=== PATIENT | female | born 1965 | race African-American/Black ===

== ENCOUNTER 2016-12-03 16:49 | Emergency (ER) | payer MEDICARE, MEDICAID ==
[~2016-12-03] VITALS: Ht 165.1 cm; Wt 80.0 kg
[~2016-12-03 16:49] MED LIST: ALBU05 IH; AMLO2.5T45 PO; ASPI-1159 PO; CODE118S2 PO; FAMO20TA8 PO; FLUT1DIS IH; HYDR-519 PO; LISI-604 PO; TIOT18CA3 IH
[2016-12-03] MEDS ORDERED: IPRATROPIUM BROMIDE (0.02%) 0.5MG/2.5ML NEB HHN STA (17:04)
[2016-12-03] MEDS ORDERED: METHYLPREDNISOLONE SOD SUCC 125 MG/2 ML VIAL IV STA (17:04)
[2016-12-03] MEDS ORDERED: ALBUTEROL (0.083%) 2.5MG/3ML NEB ONE (17:14)
[2016-12-03] MEDS ORDERED: ALBUTEROL (0.5%) 2.5MG/0.5ML NEB HHN ONE (17:15)
[2016-12-03] MEDS ORDERED: ALBUTEROL (0.083%) 2.5MG/3ML NEB HHN SCH (17:30)
[2016-12-03 17:31] LABS: BASOPHILS % 0.6 % (0.0-2.0); EOSINOPHILS % 0.8 % (0.0-5.0); HEMATOCRIT. 39.1 % (36.0-48.0); HEMOGLOBIN. 13.3 g/dL (12.0-16.0); LYMPHOCYTES % 27.4 % (20.0-50.0); MEAN CORPUSCULAR HEMOGLOBIN 34.3 pg (28.0-32.0); MEAN PLATELET VOLUME 7.6 fl (7.4-10.4); MONOCYTES % 9.1 % (2.0-8.0); NEUTROPHILS % 62.1 % (40.0-76.0); PLATELET 311 x1000/uL (130-400); RED BLOOD CELL COUNT 3.88 mill/uL (4.2-5.4); RED CELL DISTRIBUTION WIDTH 14.5 % (11.6-14.6)
[2016-12-03 17:38] LABS: CARBON DIOXIDE 22 mEq/L (21-32); CHLORIDE 107 mEq/L (98-107)
[2016-12-03 17:45] LABS: TROPONIN I < 0.02 ng/mL (0.00-0.04)
[2016-12-03] MEDS ORDERED: SODIUM CHLORIDE 0.9% 1,000 ML IV ONE (18:00)
[2016-12-03 18:32] VITALS: BP 105/63
== END 2016-12-03 21:10 | disposition home or self-care (01) ==
LOC: ER 17:38
DX: J44.1 Chronic obstructive pulmonary disease with (acute) exacerbation (principal); J45.909 Unspecified asthma, uncomplicated; Z79.82 Long term (current) use of aspirin; Z79.899 Other long term (current) drug therapy
CPT/HCPCS: 36415; 71010; 71035; 80053; 83880; 84484; 85025; 85610; 93005; 94660; 96361; 96374; 99285; J2930; J7030; J7611

== ENCOUNTER 2019-01-04 20:17 | Emergency (ER) | payer OTHER, MEDICAID ==
[~2019-01-04] VITALS: Ht 160 cm; Wt 77.0 kg
[~2019-01-04 20:17] MED LIST changes: -ASPI-1159 PO; +ASPI-1393 PO
[2019-01-04] MEDS ORDERED: KETOROLAC 60MG/2ML VIAL IM ONE (21:15)
[2019-01-04] MEDS ORDERED: HYDROCODONE/ACETAMINOPHEN 5/325MG TABLET PO ONE (21:15)
[2019-01-04 22:49] VITALS: BP 123/85
== END 2019-01-04 22:53 | disposition home or self-care (01) ==
LOC: ER 20:17
DX: M54.5 Low back pain (principal); M54.2 Cervicalgia; S00.81XA Abrasion of other part of head, initial encounter; V03.00XA Pedestrian on foot injured in collision with car, pick-up truck or van in nontraffic accident, initial encounter; Y93.01 Activity, walking, marching and hiking; Y92.481 Parking lot as the place of occurrence of the external cause
CPT/HCPCS: 72100; 96372; 99283; J1885

== ENCOUNTER 2019-06-22 21:59 | Emergency (ER) | payer OTHER, MEDICAID ==
[~2019-06-22] VITALS: Ht 162.6 cm; Wt 75.0 kg
[~2019-06-22 21:59] MED LIST changes: -ASPI-1393 PO; +ASPI-1497 PO
[2019-06-23] MEDS ORDERED: MAGNESIUM/ALUMINUM HYDROXIDE/SIMETHICONE 30ML UDC PO STA (06:13)
[2019-06-23] MEDS ORDERED: ONDANSETRON HCL 4MG/2ML INJ IV STA (06:13)
[2019-06-23] MEDS ORDERED: FAMOTIDINE 20MG/2ML VIAL IV STA (06:13)
[2019-06-23] MEDS ORDERED: SODIUM CHLORIDE 0.9% 1,000 ML IV ONE (06:13)
[2019-06-23] MEDS ORDERED: ACETAMINOPHEN 325MG TABLET PO STA (06:13)
[2019-06-23] MEDS ORDERED: MAGNESIUM 2 G PREMIX 50 ML IV ONE (06:45)
[2019-06-23 08:59] LABS: BASOPHILS % 0.4 % (0.0-2.0); EOSINOPHILS % 0.2 % (0.0-5.0); HEMATOCRIT. 45.6 % (36.0-48.0); HEMOGLOBIN. 15.1 g/dL (12.0-16.0); LYMPHOCYTES % 11.8 % (20.0-50.0); MEAN CORPUSCULAR HEMOGLOBIN 34.5 pg (28.0-32.0); MEAN CORPUSCULAR VOLUME 103.8 fL (81.0-99.0); MEAN PLATELET VOLUME 9.6 fl (7.4-10.4); MONOCYTES % 10.6 % (2.0-8.0); PLATELET 143 x1000/uL (130-400); RED BLOOD CELL COUNT 4.39 mill/uL (4.2-5.4); RED CELL DISTRIBUTION WIDTH 14.4 % (11.6-14.6)
[2019-06-23 09:18] LABS: CHLORIDE 100 mEq/L (98-107)
[2019-06-23 11:00] VITALS: BP 126/78
[2019-06-23 11:03] LABS: CLARITY URINE CLOUDY (CLEAR); COLOR URINE YELLOW (YELLOW); KETONES URINE 1+ (NEGATIVE); LEUKOCYTE ESTERASE URINE 1+ (NEGATIVE); NITRITE URINE NEGATIVE (NEGATIVE); OCCULT BLOOD URINE NEGATIVE (NEGATIVE); PH URINE 5.5 (4.5-8.0); PROTEIN URINE 1+ (NEGATIVE); SPECIFIC GRAVITY URINE 1.071 (1.005-1.030)
[2019-06-23] MEDS ORDERED: IPRATROPIUM/ALBUTEROL 0.5-3(2.5)MG/3ML NEB HHN ONE (11:30)
[2019-06-23] MEDS ORDERED: IOHEXOL-300 100 ML BOTTLE ONE (11:41)
== END 2019-06-23 11:50 | disposition home or self-care (01) ==
LOC: ER 21:59
DX: K52.9 Noninfective gastroenteritis and colitis, unspecified (principal); R74.0 Nonspecific elevation of levels of transaminase and lactic acid dehydrogenase [LDH]; I10 Essential (primary) hypertension; J45.909 Unspecified asthma, uncomplicated
CPT/HCPCS: 36415; 71045; 74177; 80053; 81003; 83690; 84484; 85025; 93005; 96365; 96375; 99284; J2405; J3475; J3490; J7030; Q9967

== ENCOUNTER 2019-12-04 07:20 | Emergency (ER) | payer MEDICARE, MEDICAID ==
[~2019-12-04] VITALS: Ht 170.2 cm; Wt 81.0 kg
[2019-12-04] MEDS ORDERED: SODIUM CHLORIDE 0.9% 1,000 ML IV ONE (08:22)
[2019-12-04] MEDS ORDERED: MAGNESIUM/ALUMINUM HYDROXIDE/SIMETHICONE 30ML UDC PO STA (08:22)
[2019-12-04] MEDS ORDERED: KETOROLAC 30MG/ML VIAL IV STA (08:22)
[2019-12-04] MEDS ORDERED: ONDANSETRON HCL 4MG/2ML INJ IV STA (08:22)
[2019-12-04 09:32] LABS: BASOPHILS % 0.5 % (0.0-2.0); EOSINOPHILS % 0.1 % (0.0-5.0); HEMATOCRIT. 50.9 % (36.0-48.0); HEMOGLOBIN. 17.6 g/dL (12.0-16.0); MEAN CORPUSCULAR HEMOGLOBIN 36.6 pg (28.0-32.0); MEAN CORPUSCULAR VOLUME 105.8 fL (81.0-99.0); MEAN PLATELET VOLUME 9.5 fl (7.4-10.4); MONOCYTES % 11.4 % (2.0-8.0); PLATELET 184 x1000/uL (130-400); RED BLOOD CELL COUNT 4.81 mill/uL (4.2-5.4); RED CELL DISTRIBUTION WIDTH 13.3 % (11.6-14.6)
[2019-12-04 09:39] LABS: CHLORIDE 92 mEq/L (98-107)
[2019-12-04] MEDS ORDERED: METHYLPREDNISOLONE SOD SUCC 125 MG/2 ML VIAL IV STA (10:47)
[2019-12-04] MEDS ORDERED: ALBUTEROL 6.7GM HFA INHALER ORI ONE (11:00)
[2019-12-04 11:29] LABS: CLARITY URINE TURBID (CLEAR); COLOR URINE YELLOW (YELLOW); KETONES URINE 2+ (NEGATIVE); LEUKOCYTE ESTERASE URINE 2+ (NEGATIVE); NITRITE URINE NEGATIVE (NEGATIVE); OCCULT BLOOD URINE NEGATIVE (NEGATIVE); PROTEIN URINE 2+ (NEGATIVE); SPECIFIC GRAVITY URINE 1.016 (1.005-1.030)
[2019-12-04] MEDS ORDERED: CEFTRIAXONE 1 G PREMIX 50 ML IV SCH (11:47)
[2019-12-04 12:42] VITALS: BP 135/96
== END 2019-12-04 12:44 | disposition home or self-care (01) ==
LOC: ER 07:20
DX: R10.13 Epigastric pain (principal); N39.0 Urinary tract infection, site not specified; R74.0 Nonspecific elevation of levels of transaminase and lactic acid dehydrogenase [LDH]; A59.9 Trichomoniasis, unspecified; J44.9 Chronic obstructive pulmonary disease, unspecified; F12.10 Cannabis abuse, uncomplicated
CPT/HCPCS: 36415; 71045; 76700; 80053; 81003; 83690; 85025; 87086; 96361; 96365; 96375; 99284; J0696; J1885; J2405; J2930; J7030; 99285

== ENCOUNTER 2020-02-13 15:50 | Inpatient (IN) | payer MEDICARE, MEDICAID ==
[~2020-02-13] VITALS: Ht 160 cm; Wt 79.8 kg
[2020-02-13] MEDS ORDERED: SODIUM CHLORIDE 0.9% 1,000 ML IV ONE ×2 (16:58→17:00)
[2020-02-13 18:37] LABS: BASOPHILS % 0.3 % (0.0-2.0); EOSINOPHILS % 0.1 % (0.0-5.0); HEMATOCRIT. 45.9 % (36.0-48.0); HEMOGLOBIN. 15.6 g/dL (12.0-16.0); MEAN CORPUSCULAR HEMOGLOBIN 35.7 pg (28.0-32.0); MEAN CORPUSCULAR VOLUME 104.9 fL (81.0-99.0); MEAN PLATELET VOLUME 9.5 fl (7.4-10.4); MONOCYTES % 7.6 % (2.0-8.0); PLATELET 154 x1000/uL (130-400); RED BLOOD CELL COUNT 4.38 mill/uL (4.2-5.4)
[2020-02-13 18:42] LABS: CHLORIDE 94 mEq/L (98-107)
[2020-02-13 18:47] LABS: ETHANOL BLOOD < 10 mg/dL
[2020-02-13 18:49] LABS: HCG SCREEN NEGATIVE
[2020-02-13] MEDS ORDERED: KETOROLAC 30MG/ML VIAL IV SCH (19:45)
[2020-02-13 20:44] LABS: CLARITY URINE CLOUDY (CLEAR); COLOR URINE ORANGE (YELLOW); KETONES URINE 2+ (NEGATIVE); LEUKOCYTE ESTERASE URINE 1+ (NEGATIVE); NITRITE URINE POSITIVE (NEGATIVE); OCCULT BLOOD URINE NEGATIVE (NEGATIVE); PH URINE 5.5 (4.5-8.0); PROTEIN URINE 2+ (NEGATIVE); SPECIFIC GRAVITY URINE 1.024 (1.005-1.030)
[2020-02-13] MEDS ORDERED: CEFTRIAXONE 1 G PREMIX 50 ML IV ONE (21:00)
[2020-02-13 21:47] LABS: *BARBITURATES SCREEN URINE NEGATIVE (NEGATIVE); *BENZODIAZEPINES SCREEN URINE NEGATIVE (NEGATIVE); *COCAINE SCREEN URINE NEGATIVE (NEGATIVE)
[2020-02-13 21:48] LABS: *AMPHETAMINES SCREEN URINE NEGATIVE (NEGATIVE); CANNABINOID URINE SCREEN PRESUMTIVE POSITIVE (NEGATIVE); METHADONE URINE SCREEN NEGATIVE (NEGATIVE); OPIATES URINE SCREEN NEGATIVE (NEGATIVE)
[2020-02-13 21:49] LABS: PHENCYCLIDINE URINE SCREEN NEGATIVE (NEGATIVE)
[2020-02-14] VITALS (7 sets, daily range): BP systolic 108–127; BP diastolic 75–98
[2020-02-14] MEDS ORDERED: GUAIFENESIN 200MG/10ML SUGAR FREE UDC PO PRN (00:30)
[2020-02-14] MEDS ORDERED: CLONIDINE 0.1MG TABLET PO PRN (00:30)
[2020-02-14] MEDS ORDERED: MAGNESIUM/ALUMINUM HYDROXIDE/SIMETHICONE 30ML UDC PO PRN (00:30)
[2020-02-14] MEDS ORDERED: HYDROCODONE/ACETAMINOPHEN 10/325MG TABLET PO PRN (00:30)
[2020-02-14] MEDS ORDERED: POTASSIUM CHLORIDE 20MEQ TABLET SR PO SCH (00:30)
[2020-02-14] MEDS ORDERED: IPRATROPIUM/ALBUTEROL 0.5-3(2.5)MG/3ML NEB HHN PRN (00:30)
[2020-02-14] MEDS ORDERED: LORAZEPAM 2MG/ML CPJ IV PRN (00:30)
[2020-02-14] MEDS ORDERED: ACETAMINOPHEN 325MG TABLET PO PRN (00:30)
[2020-02-14] MEDS ORDERED: ONDANSETRON HCL 4MG/2ML INJ IV PRN (00:30)
[2020-02-14] MEDS ORDERED: DIPHENHYDRAMINE 50MG/ML VIAL IV PRN (00:30)
[2020-02-14] MEDS ORDERED: DOCUSATE SODIUM 100MG CAPSULE PO PRN (00:30)
[2020-02-14] MEDS ORDERED: MORPHINE SULFATE 2 MG/ML CPJ (NOT FOR IM USE) IV PRN (00:30)
[2020-02-14] MEDS ORDERED: HYDRALAZINE 20MG/ML VIAL IV PRN (00:30)
[2020-02-14] MEDS: SODIUM CHLORIDE 0.9% INJ 3ML FLUSH IVF SCH ×2 (04:51→14:05)
[2020-02-14] MEDS: ENOXAPARIN 40MG/0.4ML SYR SUBCUT SCH (09:25)
[2020-02-14] MEDS ORDERED: ALBUTEROL 6.7GM HFA INHALER ORI PRN (12:00)
[2020-02-14] MEDS ORDERED: ALBUTEROL 6.7GM HFA INHALER ORI NR (13:00)
[2020-02-14] MEDS: METHYLPREDNISOLONE SOD SUCC 40 MG/ML VIAL IV SCH ×2 (14:02→20:06)
[2020-02-14 15:57] LABS: BG BASE EXCESS 2.6 mmol/L (-2.0-2.0); BG CARBOXYHEMOGLOBIN 0.3 % (0.5-1.5); BG DEOXYHEMOGLOBIN 0.7 % (0.0-5.0); BG FRACTION INSPIRED OXYGEN 40; BG HCO3 ACT 25.8 mmol/L (22.0-26.0); BG METHEMOGLOBIN 0.3 % (0.0-1.5); BG OXYGEN SATURATION 99.3 % (92.0-98.5); BG OXYHEMOGLOBIN 98.7 % (94.0-97.0); BG PCO2 35.7 mmHg (35.0-45.0); BG PH 7.477 (7.350-7.450); BG PO2 217.4 mmHg (75.0-100.0); BG SAMPLE SITE RIGHT RADIAL; BG TOTAL HEMOGLOBIN 14.5 g/dL (12.0-18.0); BG VENT MODE NASAL CANNULA
[2020-02-14] MEDS: AZITHROMYCIN 500 MG in DEXT 5% WATER 250 ML IV SCH (16:07)
[2020-02-14 17:44] LABS: BASOPHILS % 0.2 % (0.0-2.0); EOSINOPHILS % 0.4 % (0.0-5.0); HEMATOCRIT. 41.4 % (36.0-48.0); LYMPHOCYTES % 8.1 % (20.0-50.0); MEAN CORPUSCULAR HEMOGLOBIN 36.2 pg (28.0-32.0); MEAN CORPUSCULAR VOLUME 106.7 fL (81.0-99.0); MEAN PLATELET VOLUME 9.8 fl (7.4-10.4); MONOCYTES % 6.8 % (2.0-8.0); NEUTROPHILS % 84.5 % (40.0-76.0); PLATELET 124 x1000/uL (130-400); RED BLOOD CELL COUNT 3.88 mill/uL (4.2-5.4); RED CELL DISTRIBUTION WIDTH 13.9 % (11.6-14.6)
[2020-02-14 17:57] LABS: CHLORIDE 100 mEq/L (98-107)
[2020-02-14 18:02] LABS: D-DIMER 0.77 mg/L FEU (<0.50); PROTHROMBIN TIME 10.9 sec (9.6-11.0)
[2020-02-14 18:27] LABS: HEPATITIS B SURFACE ANTIGEN NEGATIVE
[2020-02-14 18:57] LABS: HEPATITIS A AB IGM NEGATIVE (NEGATIVE)
[2020-02-14] MEDS: CEFTRIAXONE 1,000 MG in DEXTROSE 5% WATER 50 ML IV SCH (20:06)
[2020-02-15] VITALS: BP 123/90
[2020-02-15 04:00] VITALS: BP 132/86
[2020-02-15 08:00] VITALS: BP 129/70
[2020-02-15] MEDS: ENOXAPARIN 40MG/0.4ML SYR SUBCUT SCH (09:24)
[2020-02-15 12:00] VITALS: BP 118/86
[2020-02-15] MEDS: AZITHROMYCIN 500 MG in DEXT 5% WATER 250 ML IV SCH (14:23)
[2020-02-15] MEDS: METHYLPREDNISOLONE SOD SUCC 40 MG/ML VIAL IV SCH ×3 (14:23→21:40)
[2020-02-15 16:00] VITALS: BP 113/83
[2020-02-15] MEDS: SODIUM CHLORIDE 0.9% INJ 3ML FLUSH IVF SCH ×2 (18:03→21:40)
[2020-02-15 20:00] VITALS: BP 121/85
[2020-02-15] MEDS: CEFTRIAXONE 1,000 MG in DEXTROSE 5% WATER 50 ML IV SCH (21:40)
[2020-02-16] VITALS: BP 115/82
[2020-02-16 04:00] VITALS: BP 112/75
[2020-02-16] MEDS: METHYLPREDNISOLONE SOD SUCC 40 MG/ML VIAL IV SCH ×2 (04:03→12:45)
[2020-02-16 08:00] VITALS: BP 123/83
[2020-02-16] MEDS: ENOXAPARIN 40MG/0.4ML SYR SUBCUT SCH ×2 (08:51→08:59)
[2020-02-16] MEDS ORDERED: AZITHROMYCIN 250 MG TABLET PO SCH (09:00)
[2020-02-16 12:00] VITALS: BP 121/84
[2020-02-16 15:45] LABS: HEMATOCRIT. 44.3 % (36.0-48.0); HEMOGLOBIN. 14.9 g/dL (12.0-16.0); MEAN CORPUSCULAR VOLUME 106.6 fL (81.0-99.0); MEAN PLATELET VOLUME 9.5 fl (7.4-10.4); PLATELET 146 x1000/uL (130-400); RED BLOOD CELL COUNT 4.15 mill/uL (4.2-5.4); RED CELL DISTRIBUTION WIDTH 13.9 % (11.6-14.6)
[2020-02-16 15:51] LABS: CHLORIDE 103 mEq/L (98-107)
[2020-02-16 16:00] VITALS: BP 127/73
[2020-02-16 17:26] LABS: PLATELET ESTIMATE NORMAL
[2020-02-16 19:53] VITALS: BP 127/73
== END 2020-02-16 20:05 | disposition home or self-care (01) | DRG 189 ==
LOC: ER 15:50 → 7WST 21:43 → ENRESERV 22:09
PROVIDERS: ADMIT Internal Medicine; ATTEND Internal Medicine
DX: J96.00 Acute respiratory failure, unspecified whether with hypoxia or hypercapnia (principal); J45.901 Unspecified asthma with (acute) exacerbation; N39.0 Urinary tract infection, site not specified; E87.2 Acidosis; E87.1 Hypo-osmolality and hyponatremia; I10 Essential (primary) hypertension; F12.90 Cannabis use, unspecified, uncomplicated; E87.6 Hypokalemia; D72.810 Lymphocytopenia; K76.0 Fatty (change of) liver, not elsewhere classified; E66.9 Obesity, unspecified; Z68.31 Body mass index [BMI] 31.0-31.9, adult; Z79.82 Long term (current) use of aspirin; Z79.1 Long term (current) use of non-steroidal anti-inflammatories (NSAID); Z79.899 Other long term (current) drug therapy; R74.0 Nonspecific elevation of levels of transaminase and lactic acid dehydrogenase [LDH]
CPT/HCPCS: 36415; 36600; 71045; 76700; 80053; 80305; 80320; 81003; 82375; 82805; 83605; 83880; 84145; 84484; 84703; 85025; 85379; 86705; 86709; 86803; 86850; 86900; 87340; 87635; 93005; 93970; 99285; J0456; J0696; J1650; J1885; J2060; J2920; J7030; J7060; G0480

== ENCOUNTER 2021-06-07 19:37 | Emergency (ER) | payer MEDICARE, MEDICAID ==
[~2021-06-07] VITALS: Ht 167.6 cm; Wt 95.0 kg
[~2021-06-07 19:37] MED LIST changes: +CHLO25CA10 MT; -LISI-604 PO; +LISI20TA31 PO; +PANT40TA51 MT
[2021-06-07] MEDS ORDERED: IPRATROPIUM BROMIDE (0.02%) 0.5MG/2.5ML NEB HHN STA (20:20)
[2021-06-07] MEDS: ALBUTEROL (0.083%) 2.5MG/3ML NEB HHN SCH ×3 (20:46→22:00)
[2021-06-07 20:51] LABS: BASOPHILS % 0.5 % (0.0-2.0); EOSINOPHILS % 0.3 % (0.0-5.0); HEMATOCRIT. 41.8 % (36.0-48.0); HEMOGLOBIN. 13.9 g/dL (12.0-16.0); LYMPHOCYTES % 17.4 % (20.0-50.0); MEAN CORPUSCULAR HEMOGLOBIN 32.7 pg (28.0-32.0); MEAN CORPUSCULAR VOLUME 98.2 fL (81.0-99.0); MEAN PLATELET VOLUME 7.9 fl (7.4-10.4); MONOCYTES % 7.2 % (2.0-8.0); NEUTROPHILS % 74.6 % (40.0-76.0); PLATELET 219 x1000/uL (130-400); RED BLOOD CELL COUNT 4.26 mill/uL (4.2-5.4); RED CELL DISTRIBUTION WIDTH 13.8 % (11.6-14.6)
[2021-06-07 20:55] LABS: CHLORIDE 102 mEq/L (98-107)
[2021-06-08 00:16] VITALS: BP 106/70
== END 2021-06-08 01:10 | disposition home or self-care (01) ==
LOC: ER 19:37
DX: E86.0 Dehydration (principal); J45.901 Unspecified asthma with (acute) exacerbation; F17.290 Nicotine dependence, other tobacco product, uncomplicated; F12.10 Cannabis abuse, uncomplicated; Z79.899 Other long term (current) drug therapy
CPT/HCPCS: 36415; 71045; 80053; 83735; 83880; 84484; 85025; 93005; 94640; 99285; 99406

== ENCOUNTER 2021-08-02 15:53 | Inpatient (IN) | payer MEDICARE, MEDICAID ==
[~2021-08-02] VITALS: Ht 309.9 cm; Wt 86.2 kg
[2021-08-02] MEDS ORDERED: ALBUTEROL (0.083%) 2.5MG/3ML NEB HHN STA (16:05)
[2021-08-02] MEDS ORDERED: IPRATROPIUM BROMIDE (0.02%) 0.5MG/2.5ML NEB HHN STA (16:05)
[2021-08-02] MEDS ORDERED: METHYLPREDNISOLONE SOD SUCC 125 MG/2 ML VIAL IV STA (16:05)
[2021-08-02] MEDS ORDERED: LIDOCAINE HCL/PF 1% 2ML VIAL ONE (16:11)
[2021-08-02] MEDS ORDERED: MAGNESIUM 2 G PREMIX 50 ML IV ONE (16:15)
[2021-08-02 16:48] LABS: BASOPHILS % 0.6 % (0.0-2.0); EOSINOPHILS % 0.1 % (0.0-5.0); HEMATOCRIT. 46.4 % (36.0-48.0); HEMOGLOBIN. 15.5 g/dL (12.0-16.0); LYMPHOCYTES % 21.1 % (20.0-50.0); MEAN CORPUSCULAR HEMOGLOBIN 32.5 pg (28.0-32.0); MEAN CORPUSCULAR VOLUME 97.1 fL (81.0-99.0); MEAN PLATELET VOLUME 8.7 fl (7.4-10.4); MONOCYTES % 5.3 % (2.0-8.0); NEUTROPHILS % 72.9 % (40.0-76.0); PLATELET 205 x1000/uL (130-400); RED BLOOD CELL COUNT 4.78 mill/uL (4.2-5.4); RED CELL DISTRIBUTION WIDTH 15.3 % (11.6-14.6)
[2021-08-02 16:56] LABS: CHLORIDE 99 mEq/L (98-107)
[2021-08-02 17:42] LABS: BG BASE EXCESS -1.3 mmol/L (-2.0-2.0); BG CARBOXYHEMOGLOBIN 0.3 % (0.5-1.5); BG DEOXYHEMOGLOBIN 0.4 % (0.0-5.0); BG HCO3 ACT 20.6 mmol/L (22.0-26.0); BG METHEMOGLOBIN 0.3 % (0.0-1.5); BG OXYGEN SATURATION 99.6 % (92.0-98.5); BG PH 7.484 (7.350-7.450); BG PO2 > 602.7 mmHg (75.0-100.0); BG SAMPLE SITE RIGHT RADIAL; BG TOTAL HEMOGLOBIN 15.8 g/dL (12.0-18.0); BG VENT MODE MASK - BIPAP
[2021-08-02] MEDS ORDERED: IPRATROPIUM BROMIDE (0.02%) 0.5MG/2.5ML NEB HHN PRN (18:15)
[2021-08-02] MEDS ORDERED: MAGNESIUM/ALUMINUM HYDROXIDE/SIMETHICONE 30ML UDC PO PRN (18:15)
[2021-08-02] MEDS ORDERED: ACETAMINOPHEN 325MG TABLET PO PRN (18:15)
[2021-08-02] MEDS ORDERED: ONDANSETRON HCL 4MG/2ML INJ IV PRN (18:15)
[2021-08-02] MEDS ORDERED: NALOXONE HCL 0.4MG/ML VIAL IV PRN (18:30)
[2021-08-02] MEDS: ENOXAPARIN 40MG/0.4ML SYR SUBCUT SCH (20:34)
[2021-08-03 01:26] VITALS: BP 166/91
[2021-08-03 04:00] VITALS: BP 184/103
[2021-08-03] MEDS: CLONIDINE 0.1MG TABLET PO PRN ×2 (04:12→09:53)
[2021-08-03] MEDS: OMEPRAZOLE 20MG CAPSULE EXTENDED RELEASE PO SCH (05:55)
[2021-08-03 06:43] LABS: BASOPHILS % 0.3 % (0.0-2.0); HEMATOCRIT. 38.5 % (36.0-48.0); LYMPHOCYTES % 10.4 % (20.0-50.0); MEAN CORPUSCULAR HEMOGLOBIN 32.6 pg (28.0-32.0); MEAN CORPUSCULAR VOLUME 96.4 fL (81.0-99.0); MEAN PLATELET VOLUME 8.5 fl (7.4-10.4); MONOCYTES % 3.6 % (2.0-8.0); NEUTROPHILS % 85.7 % (40.0-76.0); PLATELET 170 x1000/uL (130-400); RED CELL DISTRIBUTION WIDTH 14.5 % (11.6-14.6)
[2021-08-03 06:51] LABS: CHLORIDE 100 mEq/L (98-107)
[2021-08-03 06:59] LABS: PHOSPHORUS 3.1 mg/dL (2.5-4.9)
[2021-08-03 07:00] LABS: LDL CHOLESTEROL 88 mg/dL (5-100)
[2021-08-03 07:02] LABS: HDL CHOLESTEROL 101 mg/dL (40-59); T4 FREE 0.73 ng/dL (0.76-1.46)
[2021-08-03 07:24] LABS: CLARITY URINE CLEAR (CLEAR); COLOR URINE ORANGE (YELLOW); KETONES URINE 1+ (NEGATIVE); LEUKOCYTE ESTERASE URINE NEGATIVE (NEGATIVE); NITRITE URINE NEGATIVE (NEGATIVE); OCCULT BLOOD URINE NEGATIVE (NEGATIVE); PROTEIN URINE NEGATIVE (NEGATIVE); SPECIFIC GRAVITY URINE 1.012 (1.005-1.030)
[2021-08-03 07:56] LABS: *BARBITURATES SCREEN URINE NEGATIVE (NEGATIVE); *BENZODIAZEPINES SCREEN URINE NEGATIVE (NEGATIVE); *COCAINE SCREEN URINE NEGATIVE (NEGATIVE); METHADONE URINE SCREEN NEGATIVE (NEGATIVE); OPIATES URINE SCREEN NEGATIVE (NEGATIVE)
[2021-08-03 07:57] LABS: *AMPHETAMINES SCREEN URINE NEGATIVE (NEGATIVE); CANNABINOID URINE SCREEN NEGATIVE (NEGATIVE); PHENCYCLIDINE URINE SCREEN NEGATIVE (NEGATIVE)
[2021-08-03 08:00] VITALS: BP 149/94
[2021-08-03] MEDS: HYDROCODONE/ACETAMINOPHEN 5/325MG TABLET PO PRN ×2 (09:25→20:26)
[2021-08-03] MEDS ORDERED: METHYLPREDNISOLONE SOD SUCC 40 MG/ML VIAL IV SCH (10:45)
[2021-08-03] MEDS: ASPIRIN 81MG EC TABLET PO SCH (11:15)
[2021-08-03] MEDS: AMLODIPINE 5MG TABLET PO SCH (11:15)
[2021-08-03 12:00] VITALS: BP 116/77
[2021-08-03] MEDS ORDERED: INFLUENZA VACCINE 05/PF 0.5 ML SYRINGE IM ONE (12:00)
[2021-08-03] MEDS: CHLORDIAZEPOXIDE 25MG CAPSULE PO SCH ×2 (13:34→20:25)
[2021-08-03 14:27] LABS: HEPATITIS B SURFACE ANTIGEN NEGATIVE
[2021-08-03 16:00] VITALS: BP 110/56
[2021-08-03] MEDS: FOLIC ACID 1MG TABLET PO SCH (16:35)
[2021-08-03] MEDS: THIAMINE HCL 100MG TABLET PO SCH (16:35)
[2021-08-03] MEDS: MULTIVITAMINS,THER W-MINERALS TABLET PO SCH (16:36)
[2021-08-03] MEDS: METHYLPREDNISOLONE SOD SUCC 40 MG/ML VIAL IV SCH (18:04)
[2021-08-03] MEDS: NICOTINE 14MG PATCH TD SCH (18:05)
[2021-08-03] MEDS: IPRATROPIUM/ALBUTEROL 0.5-3(2.5)MG/3ML NEB HHN SCH (18:20)
[2021-08-03 20:00] VITALS: BP 124/77
[2021-08-03] MEDS: ENOXAPARIN 40MG/0.4ML SYR SUBCUT SCH (20:25)
[2021-08-04] VITALS: BP 114/81
[2021-08-04] MEDS: IPRATROPIUM/ALBUTEROL 0.5-3(2.5)MG/3ML NEB HHN SCH (01:35)
[2021-08-04] MEDS: METHYLPREDNISOLONE SOD SUCC 40 MG/ML VIAL IV SCH ×2 (01:53→10:41)
[2021-08-04 04:00] VITALS: BP 139/90
[2021-08-04] MEDS: OMEPRAZOLE 20MG CAPSULE EXTENDED RELEASE PO SCH (05:54)
[2021-08-04] MEDS: CHLORDIAZEPOXIDE 25MG CAPSULE PO SCH ×2 (05:54→13:39)
[2021-08-04 08:00] VITALS: BP 144/82
[2021-08-04] MEDS: ASPIRIN 81MG EC TABLET PO SCH (09:08)
[2021-08-04] MEDS: MULTIVITAMINS,THER W-MINERALS TABLET PO SCH (09:09)
[2021-08-04] MEDS: THIAMINE HCL 100MG TABLET PO SCH (09:09)
[2021-08-04] MEDS: FOLIC ACID 1MG TABLET PO SCH (09:09)
[2021-08-04] MEDS: AMLODIPINE 5MG TABLET PO SCH (09:09)
[2021-08-04] MEDS: NICOTINE 14MG PATCH TD SCH (09:10)
[2021-08-04] MEDS ORDERED: FOLI-43 PO (10:11)
[2021-08-04] MEDS ORDERED: ALBU18HF2 IH (10:11)
[2021-08-04] MEDS ORDERED: P20 MT (10:11)
[2021-08-04] MEDS ORDERED: THIA100T72 PO (10:11)
[2021-08-04] MEDS ORDERED: CHLO25CA10 MT (10:11)
[2021-08-04] MEDS ORDERED: FLUT1DIS2 INH (10:11)
[2021-08-04] MEDS ORDERED: AMLO5TAB88 PO (10:11)
[2021-08-04] MEDS ORDERED: MULT-230 MT (10:11)
[2021-08-04] MEDS ORDERED: FAMO20TA8 MT (10:11)
[2021-08-04 12:00] VITALS: BP 111/69
[2021-08-04 12:57] VITALS: BP 116/69
[2021-08-05] MEDS ORDERED: PREDNISONE 20MG TABLET PO SCH (09:00)
== END 2021-08-04 13:45 | disposition home or self-care (01) | DRG 190 ==
LOC: ER 15:53 → 5WST 17:05 → ENRESERV 22:18 → UNDODISIN 08-03 14:55
PROVIDERS: ADMIT Internal Medicine; ATTEND Internal Medicine
PROC: 5A09357 Assistance with Respiratory Ventilation, Less than 24 Consecutive Hours, Continuous Positive Airway Pressure (ICD-10-PCS; principal; 2021-08-02)
DX: J44.1 Chronic obstructive pulmonary disease with (acute) exacerbation (principal); J96.00 Acute respiratory failure, unspecified whether with hypoxia or hypercapnia; E44.1 Mild protein-calorie malnutrition; I42.9 Cardiomyopathy, unspecified; I50.22 Chronic systolic (congestive) heart failure; Z68.1 Body mass index [BMI] 19.9 or less, adult; E88.09 Other disorders of plasma-protein metabolism, not elsewhere classified; F17.210 Nicotine dependence, cigarettes, uncomplicated; Z20.822 Contact with and (suspected) exposure to COVID-19; I11.0 Hypertensive heart disease with heart failure; K21.9 Gastro-esophageal reflux disease without esophagitis; K70.10 Alcoholic hepatitis without ascites; K76.0 Fatty (change of) liver, not elsewhere classified; R79.89 Other specified abnormal findings of blood chemistry; F10.10 Alcohol abuse, uncomplicated; Y90.9 Presence of alcohol in blood, level not specified; Z79.82 Long term (current) use of aspirin; Z79.899 Other long term (current) drug therapy; Z79.891 Long term (current) use of opiate analgesic; Z71.6 Tobacco abuse counseling
CPT/HCPCS: 36415; 36600; 71045; 76700; 80048; 80053; 80061; 80076; 80305; 81003; 82375; 82805; 83735; 83880; 84100; 84439; 84443; 84484; 85025; 86705; 86709; 86803; 87340; 87426; 90686; 93005; 93306; 93970; 94660; 99285; J1650; J2920; J2930; J3475; J3490

== ENCOUNTER 2025-06-13 15:50 | Emergency (ER) | payer MEDICAID ==
[~2025-06-13] VITALS: Ht 165.1 cm; Wt 150.0 kg
[~2025-06-13 15:50] MED LIST changes: -ALBU05 IH; +AMLO10TA80 PO; -AMLO2.5T45 PO; -ASPI-1497 PO; +ATOR-2 PO; +CELE-146 PO; -CHLO25CA10 MT; -CODE118S2 PO; +ERGO1250 PO; +EZET10TA81 PO; -FAMO20TA8 PO; +FERR-63 PO; -FLUT1DIS IH; -HYDR-519 PO; +IPRA3AMP31 NEB; -LISI20TA31 PO; +MULT-230 MT; -PANT40TA51 MT; -TIOT18CA3 IH
[2025-06-13 15:51] VITALS: O2SAT 96
[2025-06-13] MEDS: ONDANSETRON 4MG ODT PO ONE (17:04)
[2025-06-13] MEDS: HYDROCODONE/ACETAMINOPHEN 5/325MG TABLET PO ONE (17:08)
[2025-06-13] MEDS: KETOROLAC 30MG/ML VIAL IM ONE (18:33)
[2025-06-13 18:50] LABS: BASOPHILS % 1.0 % (0.0-2.0); EOSINOPHILS % 0.5 % (0.0-5.0); HEMATOCRIT. 37.0 % (36.0-48.0); HEMOGLOBIN. 12.4 g/dL (12.0-16.0); LYMPHOCYTES % 13.8 % (20.0-50.0); MEAN PLATELET VOLUME 8.1 fl (7.4-10.4); MONOCYTES % 9.1 % (2.0-8.0); NEUTROPHILS % 75.6 % (40.0-76.0); PLATELET 198 x1000/uL (130-400); RED BLOOD CELL COUNT 3.49 mill/uL (4.2-5.4); RED CELL DISTRIBUTION WIDTH 14.4 % (11.6-14.6)
[2025-06-13 19:05] LABS: UREA NITROGEN BLOOD 7 mg/dL (9-23)
[2025-06-13 19:09] LABS: CREATININE 0.5 mg/dL (0.6-1.0)
[2025-06-13 19:20] VITALS: BP 155/82; PULSE 99; RESP 16; TEMP 37.2; O2SAT 99
[2025-06-13] MEDS ORDERED: TOPUD PO (19:20)
[2025-06-13] MEDS ORDERED: LIDO-53 TP (19:20)
[2025-06-13] MEDS ORDERED: IBUP-2028 MT (19:20)
[2025-06-13] MEDS ORDERED: METH-653 MT (19:20)
== END 2025-06-13 19:50 | disposition home or self-care (01) ==
LOC: ER 15:50
DX: F10.129 Alcohol abuse with intoxication, unspecified (principal); E78.00 Pure hypercholesterolemia, unspecified; I10 Essential (primary) hypertension; J44.89 Other specified chronic obstructive pulmonary disease; I67.82 Cerebral ischemia; Z79.899 Other long term (current) drug therapy; W19.XXXA Unspecified fall, initial encounter; Y93.01 Activity, walking, marching and hiking; Y92.89 Other specified places as the place of occurrence of the external cause; Y99.8 Other external cause status; Y90.4 Blood alcohol level of 80-99 mg/100 ml
CPT/HCPCS: 80048; 80320; 85025; 36415; 73502; 71045; 72100; 73562; 73610; 70450; 96372; 99285; Q0162; J1885; A4615; G0480